=== PATIENT | male | born 1995 | race African-American/Black ===

== ENCOUNTER 2017-08-09 05:48 | Emergency (ER) | payer MEDICAID ==
[~2017-08-09] VITALS: Ht 188 cm; Wt 81.6 kg
[~2017-08-09 05:48] MED LIST: Fluoxetine Hcl PO; [UNRECOGNIZED DRUG - SUPPLY]
--- NOTE | 2017-08-09 06:00 | NUR ---
TO ROOM 2A FOR ER EVAL
--- NOTE | 2017-08-09 06:05 | NUR ---
ER MD AT BEDSIDE EVALUATING PT
== END 2017-08-09 06:15 | disposition home or self-care (01) ==
LOC: ER 05:48
DX: K11.20 Sialoadenitis, unspecified (principal); H60.91 Unspecified otitis externa, right ear; J45.909 Unspecified asthma, uncomplicated
CPT/HCPCS: 99283; A4663

== ENCOUNTER 2017-08-27 20:38 | Emergency (ER) | payer MEDICAID ==
--- NOTE | 2017-08-27 23:30 | NUR ---
No answer in wr. Pt left prior to triage.
== END 2017-08-27 20:40 | disposition left against medical advice (07) ==
LOC: ER 20:39
DX: Z53.21 Procedure and treatment not carried out due to patient leaving prior to being seen by health care provider (principal)

== ENCOUNTER 2018-07-28 11:00 | Emergency (ER) | payer MEDICAID ==
[~2018-07-28] VITALS: Ht 182.9 cm; Wt 113.4 kg
[2018-07-28 11:16] VITALS: BP 128/87
== END 2018-07-28 11:19 | disposition home or self-care (01) ==
LOC: ER 11:00
DX: K04.7 Periapical abscess without sinus (principal); J45.909 Unspecified asthma, uncomplicated; Z79.899 Other long term (current) drug therapy
CPT/HCPCS: A4663

== ENCOUNTER 2019-10-05 08:55 | Emergency (ER) | payer MEDICAID ==
[~2019-10-05] VITALS: Ht 188 cm; Wt 108.9 kg
--- NOTE | 2019-10-05 09:15 | NUR ---
Tawanda olson in [facility] - 10/05/19 at 0922 by AIYANA Patient at bedside to examine patient.
--- NOTE | 2019-10-05 09:22 | NUR ---
at bedside to discussed ekg results with patient.
--- NOTE | 2019-10-05 09:22 | NUR ---
at bedside to see and examine patient.
[2019-10-05] MEDS ORDERED: MAG HYDROX/AL HYDROX/SIMETH 30 ML LIQUID UDC PO ONE (09:30)
[2019-10-05] MEDS ORDERED: DICYCLOMINE HCL LIQ 10 MG/5 ML UDC PO ONE (09:30)
[2019-10-05] MEDS ORDERED: MAGNESIUM HYDROXIDE 30 ML LIQUID UDC ONE (09:31)
[2019-10-05] MEDS ORDERED: DICYCLOMINE HCL LIQ 10 MG/5 ML UDC ONE (09:31)
--- NOTE | 2019-10-05 10:09 | NUR ---
DCD isntructions given pt. left room AAOx4. ambulatory.
== END 2019-10-05 10:00 | disposition home or self-care (01) ==
LOC: ER 09:00
DX: R07.89 Other chest pain (principal); J45.909 Unspecified asthma, uncomplicated; Z79.899 Other long term (current) drug therapy
CPT/HCPCS: 93005; A4663

== ENCOUNTER 2020-02-13 19:04 | Emergency (ER) | payer MEDICAID ==
[~2020-02-13] VITALS: Ht 188 cm; Wt 113.4 kg
[2020-02-13] MEDS ORDERED: HYDROCODONE/APAP 5-325MG TABLET PO ONE (19:15)
[2020-02-13] MEDS ORDERED: ASPIRIN 81 MG TAB.CHEW PO ONE (19:15)
[2020-02-13] MEDS ORDERED: NITROGLYCERIN OINT 1 GM PACKET TP ONE ×2 (19:15→19:23)
--- NOTE | 2020-02-13 19:17 | NUR ---
PATIENT HERE WITH IS BEST FRIEND FOR C/O 'ABNORMAL HEARTBEAT" AND CHEST PAIN. PLACED ON A MONITOR. 12 LEAD EKG DONE. HAND OFF REPORT GIVEN TO LUZMA NARAYAN
[2020-02-13] MEDS ORDERED: ASPIRIN 81 MG TAB.CHEW ONE (19:22)
[2020-02-13] MEDS ORDERED: HYDROCODONE/APAP 5-325MG TABLET ONE (19:23)
[2020-02-13 19:30] LABS: BASOPHILS % (AUTO) 0.5 % (0.0-2.0); EOSINOPHILS # (AUTO) 0.1 K/uL (0.0-0.7); EOSINOPHILS % (AUTO) 1.6 % (0.0-7.0); HEMATOCRIT 46.2 % (36.7-47.1); HEMOGLOBIN 15.4 g/dL (12.5-16.3); LYMPHOCYTES # (AUTO) 1.5 K/uL (20.0-40.0); LYMPHOCYTES % (AUTO) 22.4 % (20.5-51.5); MEAN CORPUSCULAR HEMOGLOBIN 31.1 uug (23.8-33.4); MEAN CORPUSCULAR HGB CONC 33 g/dL (32.5-36.3); MONOCYTES # (AUTO) 0.6 K/uL (2.0-10.0); NEUTROPHILS # (AUTO) 4.3 K/uL (1.8-8.9); NEUTROPHILS % (AUTO) 66.5 % (38.5-71.5); PLATELET COUNT (AUTO) 171 K/uL (152-348); RED BLOOD CELL COUNT(AUTO) 4.97 MIL/uL (4.06-5.63); WHITE BLOOD COUNT (AUTO) 6.5 K/uL (3.6-10.2)
[2020-02-13 19:38] LABS: CREATININE 1.6 mg/dL (0.6-1.3); POTASSIUM 4.7 mmol/L (3.5-5.1)
[2020-02-13] MEDS ORDERED: METOPROLOL TARTRATE 5 MG/5 ML VIAL IVP ONE ×2 (19:45→19:56)
[2020-02-13] MEDS ORDERED: LORAZEPAM 2 MG/1 ML VIAL IV ONE (19:45)
[2020-02-13 19:50] LABS: BILIRUBIN,DIRECT 0.2 mg/dL (0.0-0.2); BILIRUBIN,TOTAL 0.6 mg/dL (0.2-1.0); TOTAL PROTEIN, SERUM 8.3 g/dL (6.4-8.2)
[2020-02-13] MEDS ORDERED: LORAZEPAM 2 MG/1 ML VIAL ONE (19:59)
--- NOTE | 2020-02-13 23:00 | NUR ---
IV removed. Catheter intact and site benign. Pressure and 4x4 gauze applied to site. No bleeding noted.
--- NOTE | 2020-02-13 23:01 | NUR ---
DR ARANGO SPOKE WITH PATIENT MADE AWARE OF TEST RESULTS.
--- NOTE | 2020-02-13 23:06 | NUR ---
Patient discharged to home in stable condition. Written and verbal after care instructions given. Patient verbalizes understanding of instructions. Stressed follow up or return to ER for worsening s/s.
[2020-02-13 23:09] VITALS: BP 131/66
== END 2020-02-13 23:10 | disposition home or self-care (01) ==
LOC: ER 19:08
DX: R07.9 Chest pain, unspecified (principal); F84.0 Autistic disorder; J45.909 Unspecified asthma, uncomplicated; Z82.49 Family history of ischemic heart disease and other diseases of the circulatory system; R00.0 Tachycardia, unspecified; Z20.828 Contact with and (suspected) exposure to other viral communicable diseases; R03.0 Elevated blood-pressure reading, without diagnosis of hypertension
CPT/HCPCS: 36415; 71045; 80048; 80076; 83880; 84484 ×2; 85025; 85379; 93005; 96374; 96375; 99285; J2060; J3490; U0003; 70030-TC

== ENCOUNTER 2020-03-27 20:41 | Emergency (ER) | payer SELFPAY ==
[~2020-03-27] VITALS: Ht 188 cm; Wt 113.4 kg
--- NOTE | 2020-03-27 20:54 | NUR ---
Dr. Fernandez at bedside for MSE.
[2020-03-27] MEDS ORDERED: IV NORMAL SALINE 1000 ML BAG IV ONE (21:00)
[2020-03-27 21:23] LABS: CREATININE 1.5 mg/dL (0.6-1.3); POTASSIUM 3.6 mmol/L (3.5-5.1)
[2020-03-27 21:26] LABS: BASOPHILS # (AUTO) 0.1 K/uL (0.0-8.0); BASOPHILS % (AUTO) 0.9 % (0.0-2.0); EOSINOPHILS # (AUTO) 0.1 K/uL (0.0-0.7); EOSINOPHILS % (AUTO) 0.9 % (0.0-7.0); HEMATOCRIT 45.6 % (36.7-47.1); HEMOGLOBIN 15.5 g/dL (12.5-16.3); LYMPHOCYTES # (AUTO) 1.9 K/uL (20.0-40.0); LYMPHOCYTES % (AUTO) 30.1 % (20.5-51.5); MEAN CORPUSCULAR HEMOGLOBIN 31.5 uug (23.8-33.4); MEAN CORPUSCULAR HGB CONC 34 g/dL (32.5-36.3); MEAN CORPUSCULAR VOLUME 92.8 fL (73.0-96.2); MONOCYTES # (AUTO) 0.6 K/uL (2.0-10.0); MONOCYTES % (AUTO) 8.9 % (0.0-11.0); NEUTROPHILS # (AUTO) 3.8 K/uL (1.8-8.9); NEUTROPHILS % (AUTO) 59.2 % (38.5-71.5); PLATELET COUNT (AUTO) 174 K/uL (152-348); RED BLOOD CELL COUNT(AUTO) 4.91 MIL/uL (4.06-5.63); WHITE BLOOD COUNT (AUTO) 6.4 K/uL (3.6-10.2)
[2020-03-27 21:36] LABS: BILIRUBIN,DIRECT 0.1 mg/dL (0.0-0.2); BILIRUBIN,TOTAL 0.6 mg/dL (0.2-1.0); TOTAL PROTEIN, SERUM 8.2 g/dL (6.4-8.2)
[2020-03-27] MEDS ORDERED: KETOROLAC TROMETHAMINE 30 MG INJ ONE (21:40)
[2020-03-27] MEDS ORDERED: LORAZEPAM 2 MG/1 ML VIAL ONE (21:41)
[2020-03-27] MEDS ORDERED: LORAZEPAM 2 MG/1 ML VIAL IV ONE ×2 (21:45)
[2020-03-27] MEDS ORDERED: KETOROLAC TROMETHAMINE 30 MG INJ IVP ONE (21:45)
--- NOTE | 2020-03-27 23:39 | NUR ---
Pt is resting in bed and verbalizes that chest pain is improving. Still Sinus Tach on monitor at 100-110 at this time after 1L NS fluid given. Does not appear to be in active distress. All VS normal and recorded. Bed locked in place. Side rails up x 2. Fall and safety precautions maintained.
--- NOTE | 2020-03-28 01:32 | NUR ---
Pt cleared for DC. Written and verbal after care instructions given. Patient verbalizes understanding of instructions. Stressed follow up or return to ER for worsening s/s. IV removed. Catheter intact and site benign. Pressure and 4x4 gauze applied to site. No bleeding noted. Ambulated out of ER in stable condition. Patient discharged to home in stable condition.
[2020-03-28 01:34] VITALS: BP 146/81
== END 2020-03-28 01:00 | disposition home or self-care (01) ==
LOC: ER 20:42
DX: R07.2 Precordial pain (principal); R00.0 Tachycardia, unspecified; R51 Headache; Z82.49 Family history of ischemic heart disease and other diseases of the circulatory system; J45.909 Unspecified asthma, uncomplicated; F84.0 Autistic disorder
CPT/HCPCS: 36415 ×2; 71045; 80048; 80076; 83880; 84484 ×2; 85025; 85379; 93005 ×2; 96361; 96374; 96375; 99285; J1885; J2060; 70030-TC; A4663; J7030

== ENCOUNTER 2020-04-26 01:32 | Emergency (ER) | payer SELFPAY ==
[~2020-04-26] VITALS: Ht 188 cm; Wt 117.9 kg
[2020-04-26] MEDS ORDERED: ALBU8HFA4 INH (01:52)
[2020-04-26] MEDS ORDERED: [UNRECOGNIZED DRUG - REMARK] (01:52)
--- NOTE | 2020-04-26 02:14 | NUR ---
24 YO MALE BROUGHT IN BY SELF WITH C/O RIGHT SIDE HEAD PAIN, BLURRED VISION, NECK PAIN AND RIGHT HAND NUMBNESS X2DAYS. PT AWAKE, A/OX4, SPEAKING COMPLETE SENTENCES. AMBULATORY WITH STEADY GAIT. NO FACIAL DROP NOTED. PT DENIES DIZZINESS. NO DIFFICULTY SPEAKING OR FOLLOWING COMMANDS NOTED. RESPIRATIONS EVEN AND UNLABORED. MD AT BEDSIDE FOR EXAMINATION.
[2020-04-26] MEDS ORDERED: IV NORMAL SALINE 1000 ML BAG IV ONE (02:15)
[2020-04-26] MEDS ORDERED: KETOROLAC TROMETHAMINE 30 MG INJ IVP ONE (02:15)
--- NOTE | 2020-04-26 02:41 | NUR ---
PT AT IMAGING. STABLE FOR TRANSPORT.
[2020-04-26 02:44] LABS: BASOPHILS % (AUTO) 0.8 % (0.0-2.0); EOSINOPHILS # (AUTO) 0.1 K/uL (0.0-0.7); EOSINOPHILS % (AUTO) 1.6 % (0.0-7.0); HEMATOCRIT 43.8 % (36.7-47.1); HEMOGLOBIN 14.8 g/dL (12.5-16.3); LYMPHOCYTES % (AUTO) 34.8 % (20.5-51.5); MEAN CORPUSCULAR HEMOGLOBIN 31.3 uug (23.8-33.4); MEAN CORPUSCULAR HGB CONC 34 g/dL (32.5-36.3); MONOCYTES # (AUTO) 0.5 K/uL (2.0-10.0); MONOCYTES % (AUTO) 7.9 % (0.0-11.0); NEUTROPHILS # (AUTO) 3.2 K/uL (1.8-8.9); NEUTROPHILS % (AUTO) 54.9 % (38.5-71.5); PLATELET COUNT (AUTO) 168 K/uL (152-348); RED BLOOD CELL COUNT(AUTO) 4.72 MIL/uL (4.06-5.63); WHITE BLOOD COUNT (AUTO) 5.7 K/uL (3.6-10.2)
[2020-04-26 02:47] LABS: CREATININE 1.2 mg/dL (0.6-1.3); POTASSIUM 3.9 mmol/L (3.5-5.1)
[2020-04-26] MEDS ORDERED: KETOROLAC TROMETHAMINE 30 MG INJ ONE (03:18)
--- NOTE | 2020-04-26 04:15 | NUR ---
PATIENT MEDICALLY CLEARED FOR DISCHARGE. AFTERCARE INSTRUCTIONS GIVEN AND PATIENT VERBALIZED UNDERSTANDING. PT ADVISED TO FOLLOW UP WITH PRIMARY CARE PHYSICIAN WITHIN 1 TO 2 DAYS AND TO RETURN TO ED IF NEW OR WORSENING OF SYMPTOMS APPEAR. ALL QUESTIONS ANSWERED. PT AWAKE, A/OX4, SPEAKING COMPLETE SENTENCES. DENIES BLURRED VISION, HEADACHE, DIZZINESS OR NUMBNESS. DENIES PAIN OR ANY DISTRESS AT THIS MOMENT. VSS. IV DC'DD. WRIST BAND REMOVED. PT LEFT ED AMBULATORY WITH STEADY GAIT.
[2020-04-26 04:19] VITALS: BP 123/75
== END 2020-04-26 04:20 | disposition home or self-care (01) ==
LOC: ER 01:36
DX: R51 Headache (principal); R20.2 Paresthesia of skin; Z82.49 Family history of ischemic heart disease and other diseases of the circulatory system; J45.909 Unspecified asthma, uncomplicated; F84.0 Autistic disorder
CPT/HCPCS: 36415; 70450; 71045; 80048; 84484; 85025; 85379; 93005; 96361; 96374; 99285; J1885; 70030-TC; A4663; J7030

== ENCOUNTER 2020-07-15 23:29 | Emergency (ER) | payer SELFPAY ==
[~2020-07-15] VITALS: Ht 188 cm; Wt 113.4 kg
[~2020-07-15 23:29] MED LIST changes: +ALBU8HFA4 INH; -Fluoxetine Hcl PO; +[UNRECOGNIZED DRUG - REMARK]; -[UNRECOGNIZED DRUG - SUPPLY]
--- NOTE | 2020-07-15 23:49 | NUR ---
at bedside for assessment
--- NOTE | 2020-07-16 01:17 | NUR ---
Patient discharged to home in stable condition. Able to ambulate insteady manner, took all belongings, no signs of acute distress noted. Written and verbal after care instructions given. Patient verbalizes understanding of instructions. Stressed follow up or return to ER for worsening s/s.
[2020-07-16 01:19] VITALS: BP 138/80
== END 2020-07-16 01:20 | disposition home or self-care (01) ==
LOC: ER 23:31
DX: G44.209 Tension-type headache, unspecified, not intractable (principal); Z82.49 Family history of ischemic heart disease and other diseases of the circulatory system; Z81.8 Family history of other mental and behavioral disorders; J45.909 Unspecified asthma, uncomplicated; F84.0 Autistic disorder
CPT/HCPCS: 70450; A4663

== ENCOUNTER 2020-09-05 00:06 | Emergency (ER) | payer MEDICAID ==
[~2020-09-05] VITALS: Ht 188 cm; Wt 113.4 kg
--- NOTE | 2020-09-05 01:27 | NUR ---
EKG DONE/LABS DRAWN/SALINE LOCK PLACED, MONITOR SHOWS NSR/PO2=98% ON RA.
[2020-09-05 01:39] LABS: BASOPHILS % (AUTO) 0.6 % (0.0-2.0); EOSINOPHILS # (AUTO) 0.1 K/uL (0.0-0.7); EOSINOPHILS % (AUTO) 1.7 % (0.0-7.0); HEMATOCRIT 45.9 % (36.7-47.1); HEMOGLOBIN 15.6 g/dL (12.5-16.3); LYMPHOCYTES % (AUTO) 33.3 % (20.5-51.5); MEAN CORPUSCULAR HEMOGLOBIN 31.6 uug (23.8-33.4); MEAN CORPUSCULAR HGB CONC 34 g/dL (32.5-36.3); MEAN CORPUSCULAR VOLUME 92.8 fL (73.0-96.2); MONOCYTES # (AUTO) 0.4 K/uL (2.0-10.0); MONOCYTES % (AUTO) 7.4 % (0.0-11.0); NEUTROPHILS # (AUTO) 3.4 K/uL (1.8-8.9); PLATELET COUNT (AUTO) 184 K/uL (152-348); RED BLOOD CELL COUNT(AUTO) 4.95 MIL/uL (4.06-5.63); WHITE BLOOD COUNT (AUTO) 5.9 K/uL (3.6-10.2)
[2020-09-05 01:40] LABS: CREATININE 1.1 mg/dL (0.6-1.3); POTASSIUM 3.9 mmol/L (3.5-5.1)
[2020-09-05 01:46] LABS: BILIRUBIN,DIRECT 0.1 mg/dL (0.0-0.2); BILIRUBIN,TOTAL 0.4 mg/dL (0.2-1.0); TOTAL PROTEIN, SERUM 8.4 g/dL (6.4-8.2)
--- NOTE | 2020-09-05 02:30 | NUR ---
Patient in bed connected to the monitor, denies any acute distress at this time. Patient pending second troponin draw @ 0400 per ERMD and repeat EKG.
--- NOTE | 2020-09-05 04:20 | NUR ---
Repeat troponin drawn by lab, and repeat EKG performed and given to CLAY.
[2020-09-05 04:47] VITALS: BP 121/83
--- NOTE | 2020-09-05 04:47 | NUR ---
Patient discharged to home in stable condition. Written and verbal after care instructions given. Patient verbalizes understanding of instructions. Stressed follow up or return to ER for worsening s/s. IV removed. Catheter intact and site benign. Pressure and 4x4 gauze applied to site. No bleeding noted.
== END 2020-09-05 04:48 | disposition home or self-care (01) ==
LOC: ER 00:16
DX: R07.2 Precordial pain (principal); R94.31 Abnormal electrocardiogram [ECG] [EKG]; Z82.49 Family history of ischemic heart disease and other diseases of the circulatory system; J45.909 Unspecified asthma, uncomplicated; F84.0 Autistic disorder
CPT/HCPCS: 36415; 70030-TC; 71045; 85025; 93005; A4663

== ENCOUNTER 2020-11-09 18:09 | Emergency (ER) | payer MEDICAID ==
[~2020-11-09] VITALS: Ht 188 cm; Wt 113.4 kg
[~2020-11-09 18:09] MED LIST changes: -[UNRECOGNIZED DRUG - REMARK]
[2020-11-09] MEDS ORDERED: ASPI81TA31 PO (18:25)
--- NOTE | 2020-11-09 18:32 | NUR ---
[email or web address], medical screening exam in progress
[2020-11-09] MEDS ORDERED: HYDROCODONE/APAP 5-325MG TABLET PO ONE (18:45)
[2020-11-09] MEDS ORDERED: LORAZEPAM 0.5 MG TABLET PO ONE (18:45)
[2020-11-09] MEDS ORDERED: LORAZEPAM 0.5 MG TABLET ONE (18:52)
[2020-11-09] MEDS ORDERED: HYDROCODONE/APAP 5-325MG TABLET ONE (18:52)
[2020-11-09] MEDS ORDERED: ALPR0.255 PO (19:02)
[2020-11-09 19:06] LABS: BASOPHILS % (AUTO) 0.4 % (0.0-2.0); EOSINOPHILS # (AUTO) 0.1 K/uL (0.0-0.7); EOSINOPHILS % (AUTO) 1.2 % (0.0-7.0); HEMATOCRIT 44.8 % (36.7-47.1); HEMOGLOBIN 15.1 g/dL (12.5-16.3); LYMPHOCYTES # (AUTO) 1.8 K/uL (20.0-40.0); MEAN CORPUSCULAR HEMOGLOBIN 30.8 uug (23.8-33.4); MEAN CORPUSCULAR HGB CONC 34 g/dL (32.5-36.3); MEAN CORPUSCULAR VOLUME 91.3 fL (73.0-96.2); MONOCYTES # (AUTO) 0.5 K/uL (2.0-10.0); MONOCYTES % (AUTO) 7.6 % (0.0-11.0); NEUTROPHILS # (AUTO) 3.8 K/uL (1.8-8.9); NEUTROPHILS % (AUTO) 61.8 % (38.5-71.5); PLATELET COUNT (AUTO) 180 K/uL (152-348); WHITE BLOOD COUNT (AUTO) 6.2 K/uL (3.6-10.2)
[2020-11-09 19:08] LABS: POTASSIUM 4.1 mmol/L (3.5-5.1)
[2020-11-09 19:21] LABS: BILIRUBIN,DIRECT 0.1 mg/dL (0.0-0.2); BILIRUBIN,TOTAL 0.4 mg/dL (0.2-1.0); TOTAL PROTEIN, SERUM 7.7 g/dL (6.4-8.2)
--- NOTE | 2020-11-09 22:15 | NUR ---
DR ARANGO SPOKE WITH PATIENT MADE PATIENT AWARE OF TEST RESULTS. WILL DC HOME.
[2020-11-09 22:24] VITALS: BP 132/77
== END 2020-11-09 22:25 | disposition home or self-care (01) ==
LOC: ER 18:11
DX: R07.9 Chest pain, unspecified (principal); I10 Essential (primary) hypertension; Z79.82 Long term (current) use of aspirin; Z79.899 Other long term (current) drug therapy; F84.0 Autistic disorder; F41.8 Other specified anxiety disorders; F43.0 Acute stress reaction; J45.909 Unspecified asthma, uncomplicated
CPT/HCPCS: 36415; 70030-TC; 71045; 85025; 93005; A4663

== ENCOUNTER 2021-05-13 20:10 | Emergency (ER) | payer MEDICAID, OTHER ==
[~2021-05-13] VITALS: Ht 188 cm; Wt 117.9 kg
[~2021-05-13 20:10] MED LIST changes: +ALPR0.255 PO; +ASPI81TA31 PO
[2021-05-13] MEDS ORDERED: NITROGLYCERIN OINT 1 GM PACKET TP ONE ×2 (20:45→20:49)
[2021-05-13] MEDS ORDERED: ACETAMINOPHEN ES 500 MG TABLET PO ONE (20:45)
[2021-05-13] MEDS ORDERED: ASPIRIN 81 MG TAB.CHEW PO ONE (20:45)
[2021-05-13] MEDS ORDERED: NITROGLYCERIN 0.4 MG/TAB BOTTLE SL ONE ×2 (20:45→20:49)
[2021-05-13] MEDS ORDERED: ACETAMINOPHEN ES 500 MG TABLET ONE (20:49)
[2021-05-13] MEDS ORDERED: ASPIRIN 81 MG TAB.CHEW ONE (20:49)
[2021-05-13 21:04] LABS: HEMATOCRIT 43.9 % (36.7-47.1); MEAN CORPUSCULAR HEMOGLOBIN 30.7 uug (23.8-33.4); MEAN CORPUSCULAR VOLUME 90.5 fL (73.0-96.2); PLATELET COUNT (AUTO) 170 K/uL (152-348)
--- NOTE | 2021-05-13 21:07 | NUR ---
Patient given second dose of 0.4 Nitro-quick SL tablet, BP at this time was 137/77. Addendum: 05/13/21 at 2111 by CAR Patient c/o chest pain.
[2021-05-13 21:11] LABS: POTASSIUM 4.1 mmol/L (3.5-5.1)
--- NOTE | 2021-05-13 21:19 | NUR ---
Patient still c/o CP given third dose of 0.4 Nitro-quick SL tablet, BP at this time was 148/67.
[2021-05-13 21:24] LABS: BILIRUBIN,DIRECT 0.1 mg/dL (0.0-0.2); BILIRUBIN,TOTAL 0.6 mg/dL (0.2-1.0); TOTAL PROTEIN, SERUM 7.7 g/dL (6.4-8.2)
--- NOTE | 2021-05-13 22:48 | NUR ---
Patient is resting comfortably in bed watching TV, no acute distress noted.
--- NOTE | 2021-05-13 23:55 | NUR ---
Repeat troponin drawn by woven label designer.
[2021-05-14] MEDS ORDERED: HYDR-4209 PO (00:18)
[2021-05-14 00:55] VITALS: BP 129/79
--- NOTE | 2021-05-14 00:55 | NUR ---
Patient discharged to home in stable condition. Written and verbal after care instructions given. Patient verbalizes understanding of instructions. Stressed follow up or return to ER for worsening s/s. Ambulates with steady gait, V/S stable, IV line removed, received paper Rx, and left with all personal belongings.
== END 2021-05-14 00:55 | disposition home or self-care (01) ==
LOC: ER 20:11
DX: R07.9 Chest pain, unspecified (principal); Z20.822 Contact with and (suspected) exposure to COVID-19; F84.0 Autistic disorder; J45.909 Unspecified asthma, uncomplicated; Z79.82 Long term (current) use of aspirin; F41.9 Anxiety disorder, unspecified; Z79.899 Other long term (current) drug therapy
CPT/HCPCS: 36415; 70030-TC; 71045; 85025; 93005; A4663; A9150

== ENCOUNTER 2022-02-26 21:56 | Emergency (ER) | payer MEDICAID, OTHER ==
[~2022-02-26] VITALS: Ht 188 cm; Wt 126.6 kg
[~2022-02-26 21:56] MED LIST changes: +HYDR-4209 PO
--- NOTE | 2022-02-26 22:22 | NUR ---
Dr barrios at bedside, MSE in progress.
[2022-02-26] MEDS ORDERED: ASPIRIN 81 MG TAB.CHEW ONE (22:26)
[2022-02-26] MEDS ORDERED: LORAZEPAM 0.5 MG TABLET ONE (22:26)
[2022-02-26] MEDS ORDERED: LORAZEPAM 0.5 MG TABLET PO ONE (22:30)
[2022-02-26] MEDS ORDERED: ASPIRIN 81 MG TAB.CHEW PO ONE (22:30)
[2022-02-26 22:36] LABS: HEMATOCRIT 43.2 % (36.7-47.1); MEAN CORPUSCULAR HEMOGLOBIN 30.6 uug (23.8-33.4); MEAN CORPUSCULAR VOLUME 88.7 fL (73.0-96.2); PLATELET COUNT (AUTO) 176 K/uL (152-348)
[2022-02-26] MEDS ORDERED: LORA-259 PO (22:41)
[2022-02-26 22:44] LABS: CARBON DIOXIDE 28 mmol/L (21-32); CHLORIDE 103 mmol/L (98-107); CREATININE 1.4 mg/dL (0.6-1.3); GLUCOSE 102 mg/dL (74-106); UREA NITROGEN, BLOOD 20 mg/dL (7-18)
[2022-02-26 22:57] LABS: ALANINE AMINOTRANSFERASE 38 U/L (16-63); ALKALINE PHOSPHATASE 101 U/L (50-136); ASPARTATE AMINOTRANSFERASE 19 U/L (15-37); BILIRUBIN,DIRECT 0.1 mg/dL (0.0-0.2); BILIRUBIN,TOTAL 0.4 mg/dL (0.2-1.0); TOTAL PROTEIN, SERUM 7.7 g/dL (6.4-8.2)
--- NOTE | 2022-02-27 01:19 | NUR ---
Patient discharged to home in stable condition. Written and verbal after care instructions given. Patient verbalizes understanding of instructions. Stressed follow up or return to ER for worsening s/s. pt ambulated wtih steady gait. denies pain .no SOB. no chest pain. AOx4
[2022-02-27 01:26] VITALS: BP 129/65
== END 2022-02-27 01:27 | disposition home or self-care (01) ==
LOC: ER 21:58
DX: R07.9 Chest pain, unspecified (principal); F41.9 Anxiety disorder, unspecified; F84.0 Autistic disorder; Z79.82 Long term (current) use of aspirin
CPT/HCPCS: 36415; 71045; 84484; 85025; 93005; A4663

== ENCOUNTER 2022-04-09 12:11 | Emergency (ER) | payer MEDICAID, OTHER ==
[~2022-04-09] VITALS: Ht 188 cm; Wt 124.7 kg
[~2022-04-09 12:11] MED LIST changes: +LORA-259 PO
[2022-04-09 13:05] LABS: *BILIRUBIN,URIN NEGATIVE (NEGATIVE); *CLARITY,URINE CLEAR (CLEAR); *COLOR,URINE YELLOW (YELLOW); *KETONES,URINE NEGATIVE (NEGATIVE); LEUKOCYTE ESTERASE ,URINE NEGATIVE (NEGATIVE); NITRITE, URINE NEGATIVE (NEGATIVE); UGLUCOSE NEGATIVE (NEGATIVE)
[2022-04-09 13:12] LABS: *BLOOD, URINE TRACE (NEGATIVE)
[2022-04-09 13:54] LABS: BACTERIA,URINE NONE SEEN /HPF (NONE SEEN); RBC,URINE 0-3 /HPF (0-3); SQUAMOUS EPITHELIAL CELL,UR FEW /HPF (NONE SEEN); WBC,URINE NONE SEEN /HPF (0-3)
[2022-04-09] MEDS ORDERED: CEPH500C2 PO (14:01)
[2022-04-09] MEDS ORDERED: MUPI15CR TP (14:01)
--- NOTE | 2022-04-09 14:26 | NUR ---
Patient discharged to home in stable condition. Written and verbal after care instructions given with brisk steady gait. Patient verbalized understanding and compliance of instructions. Stressed follow up with primary doctor and urologist or return to ER for worsening s/s.
[2022-04-09 14:31] VITALS: BP 133/79
== END 2022-04-09 14:26 | disposition home or self-care (01) ==
LOC: ER 12:11
DX: N47.6 Balanoposthitis (principal); N48.22 Cellulitis of corpus cavernosum and penis; N48.89 Other specified disorders of penis; Z87.440 Personal history of urinary (tract) infections; F84.0 Autistic disorder; J45.909 Unspecified asthma, uncomplicated; Z79.82 Long term (current) use of aspirin; Z79.899 Other long term (current) drug therapy
CPT/HCPCS: A4663

== ENCOUNTER 2022-07-17 01:49 | Emergency (ER) | payer MEDICAID ==
[~2022-07-17] VITALS: Ht 188 cm; Wt 124.7 kg
[~2022-07-17 01:49] MED LIST changes: +CEPH500C2 PO; +MUPI15CR TP
--- NOTE | 2022-07-17 02:21 | NUR ---
Dr Gimenez at bedside, MSE in progress
[2022-07-17 02:56] LABS: HEMATOCRIT 41.8 % (36.7-47.1); MEAN CORPUSCULAR HEMOGLOBIN 31.1 uug (23.8-33.4); MEAN CORPUSCULAR VOLUME 90.7 fL (73.0-96.2); PLATELET COUNT (AUTO) 169 K/uL (152-348)
[2022-07-17 02:58] LABS: CARBON DIOXIDE 29 mmol/L (21-32); CHLORIDE 105 mmol/L (98-107); GLUCOSE 88 mg/dL (74-106); POTASSIUM 3.5 mmol/L (3.5-5.1); UREA NITROGEN, BLOOD 12 mg/dL (7-18)
--- NOTE | 2022-07-17 04:14 | NUR ---
Patient discharged to home in stable condition. Written and verbal after care instructions given. Patient verbalizes understanding of instructions. Stressed follow up or return to ER for worsening s/s. Patient is a/ox4, NAD noted. Patient is able to walk with steady gait
[2022-07-17 04:16] VITALS: BP 131/75
== END 2022-07-17 04:16 | disposition home or self-care (01) ==
LOC: ER 01:53
DX: R07.89 Other chest pain (principal); E66.9 Obesity, unspecified; Z68.35 Body mass index [BMI] 35.0-35.9, adult; R94.31 Abnormal electrocardiogram [ECG] [EKG]; J45.909 Unspecified asthma, uncomplicated; F84.0 Autistic disorder; F32.A Depression, unspecified; Z79.899 Other long term (current) drug therapy
CPT/HCPCS: 36415; 71045; 84484; 85025; 93005; A4663

== ENCOUNTER 2024-01-31 13:18 | Emergency (ER) | payer MEDICAID ==
[~2024-01-31] VITALS: Ht 185.4 cm; Wt 120.2 kg
[2024-01-31 13:22] VITALS: O2SAT 98
[2024-01-31] MEDS ORDERED: SULF1TAB48 PO (14:12)
== END 2024-01-31 14:24 | disposition home or self-care (01) ==
LOC: ER 13:18
DX: N47.6 Balanoposthitis (principal); J45.909 Unspecified asthma, uncomplicated; F32.A Depression, unspecified; Z79.899 Other long term (current) drug therapy; Z60.2 Problems related to living alone
CPT/HCPCS: A4606; A4663